=== PATIENT | male | born 1945 | race Caucasian/White ===

== ENCOUNTER 2018-07-25 13:50 | Observation (INO) ==
[2018-07-25] MEDS ORDERED: Ipratropium/Albuterol Neb 3 ML IH ONE (14:16)
[2018-07-25] MEDS ORDERED: 0.9 % Sodium Chloride 1,000 ML IVC ONE (14:16)
[2018-07-25] MEDS ORDERED: methylPREDNISolone 125 MG/2 ML VIAL IVP ONE (14:16)
--- NOTE | 2018-07-25 14:19 | Emergency Department Note ---
Disposition Clinical Impression: Hypoxia Bilateral pneumonia Qualifiers: Pneumonia type: due to unspecified organism Lung location: unspecified part of lung Qualified Code(s): J18.9 - Pneumonia, unspecified organism COPD (chronic obstructive pulmonary disease) Qualifiers: COPD type: COPD with acute lower respiratory infection Qualified Code(s): J44.0 - Chronic obstructive pulmonary disease with acute lower respiratory infection Disposition: Admitted As Inpatient Condition: Fair Time of Disposition: 15:44 SOB HPI - General Chief Complaint: ED General Medical Stated Complaint: "aches, shortness of breath" Time Seen by Provider: 07/25/18 14:07 Source: patient, family Mode of arrival: private vehicle Limitations: no limitations Nursing Notes Reviewed: Yes Vital Signs Reviewed: Yes - History of Present Illness Pt Subjective Complaint: shortness of breath, cough Onset (ago): day(s) (5 days) Context: other (Smoker, history COPD) Severity: severe Consistency/Duration: constant, gradually worsening Improves with: nothing Worsens with: exertion, coughing Known history of: COPD Associated symptoms: Reports: fever, sputum production, other (Also having right hip pain since a fall couple weeks ago) Treatment prior to arrival: bronchodilator (Minidose inhalers without relief) Cough present: Yes Cough Description: Involuntary, Productive Cough Frequency: Persistent Sputum production: Yes Sputum Color: White, Cream - Related Data Home Medications Medication Instructions Recorded Confirmed Albuterol Sulfate [Proair Hfa] 2 puff IH PRN PRN 07/25/18 07/25/18 Clopidogrel [Plavix] 75 mg PO DAILY 07/25/18 07/25/18 Ipratropium/Albuterol Sulfate 1 puff IH PRN PRN 07/25/18 07/25/18 [Combivent Respimat 20-100 Mcg] Allergies Allergy/AdvReac Type Severity Reaction Status Date / Time No Known Allergies Allergy Verified 07/25/18 13:52 All systems ED: reviewed and negative except as stated. Constitutional: Reports: fever, chills ENT ED: Denies: ear pain, throat pain, congestion Cardiovascular: Denies: chest pain Respiratory: Reports: cough, dyspnea, wheezes, sputum production Gastrointestinal: Denies: abdominal pain, vomiting, diarrhea Musculoskeletal: Denies: back pain Integumentary: Denies: rash Neurological: Denies: headache Past Medical History - Past Medical History Attestation: Yes The following information was validated with the patient. Source: patient, old records reviewed, obtained from family, nursing notes reviewed Medical history: Reports: COPD Psychiatric history: Reports: no psych history - Social History Smoking Status: Heavy tobacco smoker Smokeless Tobacco Status: No Alcohol use: Reports: none Drug use: Reports: none Physical Exam - General Limitations: no limitations General appearance: alert, other (Appear short of breath) - Head Head exam: atraumatic, normocephalic, normal inspection - Eye Eye exam: Present: normal appearance, PERRL, EOMI. Absent: scleral icterus, conjunctival injection - ENT ENT exam: normal exam, normal oropharynx, mucous membranes moist, TM's normal bilaterally, normal external ear exam - Neck Neck exam: Present: normal inspection, full ROM, trachea midline. Absent: meningismus - Chest Chest inspection: Present: normal inspection, symmetric chest wall rise. Absent: tenderness - Respiratory Respiratory exam: Present: wheezes (Bilateral with rhonchorous sounds in the right base) - Cardiovascular Cardiovascular exam: Present: regular rate, normal rhythm, normal heart sounds - Abdominal Exam Abdominal exam: Present: soft, Non-Tender - Extremities Exam Extremities exam: Present: normal inspection. Absent: pedal edema - Neurological Exam Neurological exam: Present: alert, oriented X3 - Psychiatric Psychiatric exam: Present: normal affect, normal mood - Skin Skin exam: Present: warm, dry. Absent: rash Course Course Narrative: Patient presents with cough is productive of a whitish creamy sputum. Associated with wheezing. Associated with shortness of breath is starting to impact his ADLs. On exam he looks short of breath. He has the stigmata of chronic severe COPD. On auscultation he has wheezing but most of noise I hear is in the right base. There is obvious an exacerbation of his COPD. The question is whether he has pneumonia or bronchitis as a precipitant. I ordered breathing treatments and a shortness of breath workup on the patient. Disposition will be based on diagnostic results and reevaluation but most likely patient will require admission. - Reevaluation(s) Reevaluation #1: Chest x-ray came back showing bilateral atypical pneumonia. Exam is not co nsistent with CHF and the BNP is normal. Story is consistent with pneumonia. I will start the patient on Rocephin and Zithromax. I have already spoken with the hospitalist to arrange admission due to the patient's oxygen requirement and difficulty doing activities of daily living secondary to shortness of breath. Time: 15:42 - Consultations Consultation #1: Dr. Schwartz, hospitalist - I discussed the case with the hospitalist and he has accepted the patient for admission. Time: 15:40 Vital Signs Temperature 98.2 F 07/25/18 13:55 Pulse Rate 88 07/25/18 13:55 Respiratory Rate 18 07/25/18 13:55 Blood Pressure 100/47 07/25/18 13:55 O2 Sat by Pulse Oximetry 90 07/25/18 13:55 Temperature 99.3 F 07/25/18 16:31 Pulse Rate 94 07/25/18 16:31 Respiratory Rate 16 07/25/18 16:52 Blood Pressure 103/64 07/25/18 16:31 O2 Sat by Pulse Oximetry 92 07/25/18 16:52 Oxygen Delivery Oxygen Delivery Nasal Cannula Shortness of Breath/Dyspnea - Medical Records Medical records reviewed: Yes I reviewed the patient's medical records. - Lab Data Lab results reviewed: Yes I reviewed the patient's lab results. Result diagrams: 07/25/18 14:33 07/25/18 14:33 Lab Results 07/25/18 07/25/18 07/25/18 Range/Units 14:33 14:33 14:33 WBC 4.1 L (4.3-11.1) K/mcL RBC 5.57 H (4.19-5.50) M/mcL Hgb 17.5 H (12.9-16.9) g/dL Hct 51.5 H (37.5-50.1) % MCV 92.5 (83.0-100.0) fL MCH 31.4 (28.0-33.3) pg MCHC 34.0 (31.6-35.5) g/dL RDW 15.2 H (11.5-14.5) % Plt Count 173 (140-400) K/mcL MPV 9.7 (9.4-12.4) fL Immature Gran % 0.2 (0-4) % Seg Neutrophils % 53.4 % Lymphocytes % 29.7 % Monocytes % 15.5 % Eosinophils % 0.5 % Basophils % 0.7 % Neutrophils # 2.2 (1.6-8.9) K/mcL Lymphocytes # 1.2 (0.6-4.6) K/mcL Monocytes # 0.6 (0.0-1.3) K/mcL Eosinophils # 0.0 (0.0-0.6) K/mcL Basophils # 0.0 (0.0-0.2) K/mcL Sodium 132 L (136-145) mEq/L Potassium 4.3 (3.5-5.1) mEq/L Chloride 98 (98-107) mEq/L Carbon Dioxide 26 (23-29) mEq/L BUN 20 (8-23) mg/dL Creatinine 1.31 H (0.70-1.30) mg/dL Est GFR ( Amer) > 60 (> 60) Est GFR (Non-Af Amer) 54 L (> 60) BUN/Creatinine Ratio 15 (6-26) Glucose 85 (70-105) mg/dL Calculated Osmolality 276 L (280-300) Calcium 9.2 (8.6-10.3) mg/dL Troponin I (< 0.04) ng/mL B-Natriuretic Peptide 47 (Less than 100) pg/mL 07/25/18 Range/Units 14:33 WBC (4.3-11.1) K/mcL RBC (4.19-5.50) M/mcL Hgb (12.9-16.9) g/dL Hct (37.5-50.1) % MCV (83.0-100.0) fL MCH (28.0-33.3) pg MCHC (31.6-35.5) g/dL RDW (11.5-14.5) % Plt Count (140-400) K/mcL MPV (9.4-12.4) fL Immature Gran % (0-4) % Seg Neutrophils % % Lymphocytes % % Monocytes % % Eosinophils % % Basophils % % Neutrophils # (1.6-8.9) K/mcL Lymphocytes # (0.6-4.6) K/mcL Monocytes # (0.0-1.3) K/mcL Eosinophils # (0.0-0.6) K/mcL Basophils # (0.0-0.2) K/mcL Sodium (136-145) mEq/L Potassium (3.5-5.1) mEq/L Chloride (98-107) mEq/L Carbon Dioxide (23-29) mEq/L BUN (8-23) mg/dL Creatinine (0.70-1.30) mg/dL Est GFR ( Amer) (> 60) Est GFR (Non-Af Amer) (> 60) BUN/Creatinine Ratio (6-26) Glucose (70-105) mg/dL Calculated Osmolality (280-300) Calcium (8.6-10.3) mg/dL Troponin I < 0.03 (< 0.04) ng/mL B-Natriuretic Peptide (Less than 100) pg/mL - Radiology Data Radiology results reviewed: Yes I reviewed the patient's radiology results. - EKG Data EKG attestation: Yes I reviewed and interpreted this EKG. EKG results narrative: Twelve-lead EKG performed at 1450 1 PM. Ordered, reviewed and interpreted by ED physician shows sinus rhythm at a rate of 83. Right axis deviation. Right bundle branch block. Delayed R-wave progression across precordium. No obvious acute ischemic changes. Intervals are otherwise normal.
[2018-07-25 14:45] LABS: Basophils % 0.7 %; Eosinophils % 0.5 %; Hematocrit 51.5 % (37.5-50.1); Hemoglobin 17.5 g/dL (12.9-16.9); Immature Granulocytes % 0.2 % (0-4); Lymphocytes # 1.2 K/mcL (0.6-4.6); Lymphocytes % 29.7 %; Mean Corpuscular Hemoglobin 31.4 pg (28.0-33.3); Mean Corpuscular Volume 92.5 fL (83.0-100.0); Mean Platelet Volume 9.7 fL (9.4-12.4); Monocytes # 0.6 K/mcL (0.0-1.3); Monocytes % 15.5 %; Neutrophils # 2.2 K/mcL (1.6-8.9); Platelet Count 173 K/mcL (140-400); Red Blood Count 5.57 M/mcL (4.19-5.50); Red Cell Distribution Width 15.2 % (11.5-14.5); Segmented Neutrophils % 53.4 %
[2018-07-25 15:01] LABS: BUN/Creatinine Ratio 15 (6-26); Blood Urea Nitrogen 20 mg/dL (8-23); Calcium 9.2 mg/dL (8.6-10.3); Carbon Dioxide 26 mEq/L (23-29); Chloride 98 mEq/L (98-107); Glucose 85 mg/dL (70-105); Osmolality,Calculated 276 (280-300); Potassium 4.3 mEq/L (3.5-5.1); Sodium 132 mEq/L (136-145); eGFR For Non-African Americans 54 (> 60)
[2018-07-25] MEDS ORDERED: Azithromycin 500 MG in D5% in Water 250 ML IVPB ONE ×2 (15:40→16:23)
[2018-07-25] MEDS ORDERED: Nicotine 21 MG PATCH.TD24 TD SCH (16:00)
[2018-07-25] MEDS ORDERED: cefTRIAXone 1,000 MG in 0.9 % Sodium Chloride Mini Bag 100 ML IVPB SCH (16:23)
[2018-07-25] MEDS ORDERED: MethylPREDNISolone 40 MG/ML VIAL IVP ONE (16:23)
[2018-07-25] MEDS ORDERED: Azithromycin 500 MG in D5% in Water 250 ML IVPB SCH (16:23)
[2018-07-25] MEDS ORDERED: Naloxone 0.4 MG/ML INJ IVP PRN (16:23)
[2018-07-25] MEDS: Ipratropium/Albuterol Neb 3 ML IH SCH ×2 (16:51→20:39)
[2018-07-25] MEDS ORDERED: cefTRIAXone 1,000 MG in Water for inj. (sterile) 20 ML 10 ML IVP SCH (17:00)
[2018-07-25] MEDS: Azithromycin 500 MG in D5% in Water 250 ML IVPB SCH (17:07)
[2018-07-25] MEDS: 0.9 % Sodium Chloride 1,000 ML IVC SCH (17:08)
[2018-07-25] MEDS: Nicotine 21 MG PATCH.TD24 TD SCH (18:14)
[2018-07-26] MEDS: Ipratropium/Albuterol Neb 3 ML IH SCH ×3 (00:30→08:40)
[2018-07-26] MEDS: 0.9 % Sodium Chloride 1,000 ML IVC SCH (03:40)
[2018-07-26] MEDS ORDERED: Nicotine 21 MG PATCH.TD24 TD SCH (09:00)
--- NOTE | 2018-07-26 09:07 | Internal Med History&Physical ---
Date of Encounter: 07/26/18 Time of Encounter: 08:40 Assessment and Plan (1) Bilateral pneumonia Current visit: Yes Status: Acute He has been started on Rocephin and Zithromax. Lactobacillus will be added. Chest CT will be done to further evaluate. Qualifiers: Pneumonia type: due to unspecified organism Lung location: unspecified part of lung Qualified Code(s): J18.9 - Pneumonia, unspecified organism (2) COPD (chronic obstructive pulmonary disease) Current visit: Yes Status: Acute Antibiotic treatment as above. Continue nebulizer treatments as needed. Room air oximetry will be checked on 6 minute walk before discharge. Qualifiers: COPD type: COPD with acute lower respiratory infection Qualified Code(s): J44.0 - Chronic obstructive pulmonary disease with acute lower respiratory infection (3) Elevated hemoglobin Current visit: Yes Status: Acute Recheck labs in a.m. (4) History of resection of terminal ileum Current visit: Yes Status: Acute Check B12 level in a.m. (5) Thyroid nodule Current visit: Yes Status: Chronic Check TSH in a.m. Internal Medicine - H&P: HPI Chief complaint: Cough, dyspnea, fever Admitted From: Emergency Dept Plans for Post Hospital Care: Home History of present illness: Mr. Nuno is a 73 year old male who came to emergency room stating he had 3 day history of fever up to 103 at home. He had cough and increased dyspnea. He was evaluated in emergency room and was found to have bilateral infiltrates on chest x-ray. He was admitted to [facility] floor for ongoing care needs. Respiratory history is significant for having smoked since age 13 up to 4 packs per day. He reports PFTs were done approximately one year ago and he was told he had "COPD". He does not use home oxygen. He has not been tested for sleep apnea. He reports chest CT was done many years ago. Past Med Surg Social Fam HX - Past Medical History Medical history: COPD Additional medical history: Crohns disease. "faulty aortic valve" Psychiatric history: no psych history - Past Surgical History Additional surgical history: bowel resection skin cancers removed from face. lipotripsy - Social History Smoking Status: Heavy tobacco smoker Smokeless Tobacco Status: No Alcohol use: none Drug use: none Internal Medicine - H&P: Meds Albuterol Sulfate [Proair Hfa] 2 puff IH PRN PRN 07/25/18 [History] Clopidogrel [Plavix] 75 mg PO DAILY 07/25/18 [History] Ipratropium/Albuterol Sulfate [Combivent Respimat 20-100 Mcg] 1 puff IH PRN PRN 07/25/18 [History] 3 Allergy/AdvReac Type Severity Reaction Status Date / Time No Known Allergies Allergy Verified 07/25/18 13:52 All Systems PM: A 10-system review of systems was performed and is negative for pertinent findings except as documented above in the HPI. Review of systems: Gen.: He states his weight has been stable the past few months Cardiovascular: He reports aortic insufficiency. He denies hypertension NE heart failure angina DVT or pulmonary embolus Respiratory: As per history of present illness GI: He has had cholecystectomy. He had malaria on 3 occasions. He was diagnosed with Crohn's disease in 1982 and has had total ileal resection with primary anastomosis. He states his stools are frequently loose due to the shortened gut. He denies other disorders of his liver or exocrine pancreas : He has had kidney stones requiring surgical extraction and lithotripsy procedures. He denies other kidney bladder prostate disorders. Neurologic: He denies large distribution strokes or seizures. Endocrine: He has thyroid nodules that have been monitored and are stable. He denies hyperlipidemia or diabetes Hematology/oncology: He reports melanoma was resected from his left ear approximately 2009. 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 He denies internal malignancies, anemia, or other blood disorders Psychiatric: He denies anxiety depression or other mental health issues [place] skeletal: He has DJD but denies gout or other bone joint or muscle disorders. - Constitutional Vitals: Temp Pulse Resp BP Pulse Ox 97.6 F 83 16 96/61 93 07/26/18 06:27 07/26/18 06:27 07/26/18 08:40 07/26/18 06:27 07/26/18 08:40 Exam: Gen.: He is a well-developed well-nourished male resting comfortably in bed who appears in no acute distress HEENT: Head is atraumatic and normocephalic. Eyes: EOMI. There is no scleral icterus. Mouth: Mucosa is moist. Neck: Supple and nontender. There is no thyromegaly or adenopathy noted. Heart: Regular without murmurs gallops or ectopics Lungs: No wheezes or crackles are heard. He has diminished breath sounds diffusely Abdomen: Soft and nontender. No masses or guarding are noted. Extremities: There is no cyanosis edema or clubbing noted. Dorsalis pedis and posttibial pulses are 1-2 over 2 bilaterally. He has mild DJD changes of his hands. Neurologic: Mental status: He is talkative and a good historian. Cranial nerves: Smile is symmetric. Forehead wrinkles bilaterally. Tongue protrudes midline. EOMI. Motor: There is no pronator drift. Cerebellar: Finger to nose is intact bilaterally. Skin: Warm and dry Internal Med - H&P Results - Labs CBC & Chem 7: 07/25/18 14:33 07/25/18 14:33 Labs: Short CBC 07/25/18 Range/Units 14:33 WBC 4.1 L (4.3-11.1) K/mcL Hgb 17.5 H (12.9-16.9) g/dL Hct 51.5 H (37.5-50.1) % Plt Count 173 (140-400) K/mcL Neutrophils # 2.2 (1.6-8.9) K/mcL BMP 07/25/18 14:33 Sodium 132 L Potassium 4.3 Chloride 98 Carbon Dioxide 26 BUN 20 Creatinine 1.31 H Glucose 85 Calcium 9.2 Cardiac Enzymes 07/25/18 Range/Units 14:33 Troponin I < 0.03 (< 0.04) ng/mL - Impressions ITS Impressions Chest X-Ray 07/25/18 14:15 IMPRESSION: Bilateral pulmonary reticular changes suggesting atypical pneumonia, pulmonary edema or interstitial lung disease D/ / Neeraj Cummins MD / Neeraj Cummins MD Interpreting Provider: Neeraj Cummins MD Hip X-Ray 07/25/18 14:17 IMPRESSION: No acute osseous injury. No significant findings of arthropathy are appreciated. D/ / Buck Heard MD / Buck Heard MD Interpreting Provider: Buck Heard MD
[2018-07-26] MEDS: Nicotine 21 MG PATCH.TD24 TD SCH (09:12)
[2018-07-26] MEDS: Diphenoxylate/Atropine 1 TAB TABLET PO PRN ×2 (09:16→19:26)
[2018-07-26] MEDS: 0.45 % Sodium Chloride w/KCl 20 MEQ/1,000 ML MLS IVC SCH (10:08)
[2018-07-26] MEDS ORDERED: cefTRIAXone 1,000 MG in Water for inj. (sterile) 20 ML 10 ML IVP SCH (16:00)
[2018-07-26] MEDS: Azithromycin 500 MG in D5% in Water 250 ML IVPB SCH (17:44)
[2018-07-26] MEDS: Lactobacillus 1 EACH CAP.SPRINK PO SCH (21:40)
[2018-07-27] MEDS: 0.45 % Sodium Chloride w/KCl 20 MEQ/1,000 ML MLS IVC SCH (02:12)
[2018-07-27] MEDS: Albuterol 2.5 MG/3 ML NEBULIZER IH PRN ×2 (04:02→08:45)
[2018-07-27 06:12] LABS: Basophils % 0.2 %; Eosinophils # 0.1 K/mcL (0.0-0.6); Eosinophils % 1.6 %; Hematocrit 39.8 % (37.5-50.1); Hemoglobin 13.4 g/dL (12.9-16.9); Immature Granulocytes % 0.2 % (0-4); Lymphocytes # 2.9 K/mcL (0.6-4.6); Mean Corpuscular HGB Conc 33.7 g/dL (31.6-35.5); Mean Corpuscular Hemoglobin 31.4 pg (28.0-33.3); Mean Corpuscular Volume 93.2 fL (83.0-100.0); Mean Platelet Volume 9.9 fL (9.4-12.4); Monocytes # 0.7 K/mcL (0.0-1.3); Monocytes % 7.8 %; Neutrophils # 5.1 K/mcL (1.6-8.9); Platelet Count 153 K/mcL (140-400); Red Blood Count 4.27 M/mcL (4.19-5.50); Red Cell Distribution Width 15.7 % (11.5-14.5); Segmented Neutrophils % 57.2 %
[2018-07-27 06:32] LABS: Alanine Aminotransferase 54 Units/L (7-52); Albumin 3.1 g/dL (3.5-5.7); Albumin/Globulin Ratio 1.4 (1.1-2.2); Alkaline Phosphatase 71 Units/L (34-104); Aspartate Amino Transferase 25 Units/L (13-39); BUN/Creatinine Ratio 18 (6-26); Bilirubin,Total 0.3 mg/dL (0.3-1.0); Blood Urea Nitrogen 17 mg/dL (8-23); Calcium 7.7 mg/dL (8.6-10.3); Carbon Dioxide 22 mEq/L (23-29); Chloride 114 mEq/L (98-107); Globulin 2.2 g/dL (2.4-3.5); Glucose 93 mg/dL (70-105); Osmolality,Calculated 293 (280-300); Potassium 3.8 mEq/L (3.5-5.1); Sodium 141 mEq/L (136-145); Total Protein 5.3 g/dL (6.4-8.9); eGFR For Non-African Americans > 60 (> 60)
[2018-07-27 06:45] LABS: Thyroid Stimulating Hormone 1.206 mcIU/mL (0.340-5.600)
[2018-07-27 06:49] VITALS: BP 133/76
[2018-07-27] MEDS: Lactobacillus 1 EACH CAP.SPRINK PO SCH (08:29)
[2018-07-27] MEDS: Nicotine 21 MG PATCH.TD24 TD SCH (08:31)
[2018-07-27] MEDS: Diphenoxylate/Atropine 1 TAB TABLET PO PRN (08:46)
--- NOTE | 2018-07-27 09:33 | Discharge Summary ---
Orders not resulted at time of discharge: Pending orders 07/25/18 14:15 EKG [ECG 12 lead ECG] [ECG] Stat 07/25/18 14:30 Culture,Blood [BC] Stat 07/27/18 05:58 Vitamin B12 AM 0400 Date of Encounter: 07/27/18 Time of Encounter: 09:25 - Discharge Diagnosis (1) COPD (chronic obstructive pulmonary disease) Priority: Primary Status: Acute Qualifiers: COPD type: COPD with acute lower respiratory infection Qualified Code(s): J44.0 - Chronic obstructive pulmonary disease with acute lower respiratory infection (2) Hypoxia Priority: Secondary Status: Chronic (3) Elevated hemoglobin Priority: Secondary Status: Resolved (4) History of resection of terminal ileum Priority: Secondary Status: Chronic (5) Thyroid nodule Priority: Secondary Status: Chronic (6) Azotemia Priority: Secondary Status: Resolved Hospital course: Mr. Nuno is a 73 year old male who came to emergency room stating he had 3 day history of fever up to 103 at home. He had cough and increased dyspnea. He was evaluated in emergency room and was found to have bilateral infiltrates on chest x-ray. He was admitted to [facility] floor for ongoing care needs. Initial orders were written by the emergency room physician. I saw him on July 26 and performed a history and physical. He was started on Rocephin and Zithromax empirically for possible pneumonia. Lactobacillus was given. Chest CT was done to further evaluate. The CT showed severe centrilobular emphysema without evidence of pneumonia or lymphadenopathy. There was ectatic ascending thoracic aorta up to 4.1 cm diameter. Antibiotics will not be continued at discharge. Room air oximetry showed saturation 85% at rest. He became dyspneic and required immediate reinstitution of oxygen for comfort and safety. He will be prescribed oxygen at 2 L/m by nasal cannula 24/ with portable gas and concentrator. Qualifying diagnosis is COPD with hypoxemia not resolved with aerosol/nebulizers. IV fluids were given and hemoglobin decreased to normal range at 13.4 on day of discharge. There was no left shift on WBC differential. Creatinine normalized to 0.96. TSH was normal at 1.206. B12 level was ordered with results pending at time of discharge. On July 27 he felt improved and stable for discharge home. He will follow with his PCP within 1 week. - Time Spent with Patient Total time spent providing and/or coordinating discharge services: - Discharge Medications Home Medications: Albuterol Sulfate [Proair Hfa] 2 puff IH PRN PRN 07/25/18 [History] Clopidogrel [Plavix] 75 mg PO DAILY 07/25/18 [History] Ipratropium/Albuterol Sulfate [Combivent Respimat 20-100 Mcg] 1 puff IH PRN PRN 07/25/18 [History] Allergies/Adverse Reactions: Allergy/AdvReac Type Severity Reaction Status Date / Time No Known Allergies Allergy Verified 07/25/18 13:52 Date of admission: 07/25/18 15:55 Primary care physician: Breanna León CNP - Constitutional Vitals: Temp Pulse Resp BP Pulse Ox 98.2 F 81 16 133/76 93 07/27/18 06:00 07/27/18 06:00 07/27/18 06:00 07/27/18 06:00 07/27/18 08:40 - Patient Status Disposition: Home, Self-Care Condition: Fair - Discharge Instructions Follow Up With: Breanna León CNP [Primary Care Provider] - 1 week - Diet and Activity Activity: resume usual activities as tolerated, wear oxygen at all times Diet: advance to your usual diet
--- NOTE | 2018-07-28 12:53 | Electrocardiograph Report ---
[address] [address] Test Date: 2018-07-25 Pat Name: Skinny Nuno Department: [id number] Room: [facility] Gender: M Driveway Attendant: [id number] : 1945 Requested By: Phoenix Martínez Order Number: [id number] Reading MD: Ness Negrete Measurements Intervals [place] Rate: 83 P: 74 RI: 182 QRS: 270 QRSD: 145 T: 3 QT: 418 QTc: 458 Interpretive Statements SINUS RHYTHM MARKED RIGHT AXIS DEVIATION RIGHT BUNDLE BRANCH BLOCK POOR R WAVE PROGRESSION Electronically Signed On 07-28-2018 12:51:53 EST by Ness Negrete
== END 2018-07-27 13:18 | disposition home or self-care (01) ==
LOC: INPPIK 13:50 → EMEROOPIK 13:50 → INPPIK 16:13
PROVIDERS: ADMIT Internal Medicine; ATTEND Internal Medicine